=== PATIENT | female | born 1980 | race Caucasian/White ===

== ENCOUNTER 2016-11-30 12:53 | Emergency (ER) | payer OTHER ==
[~2016-11-30] VITALS: Ht 162.6 cm; Wt 56.8 kg
[~2016-11-30 12:53] MED LIST: BCP TD; MOTRIN 600600 MG/TAB PO; NO HOME MEDICATIONS; PERCOCET 325 MG1 TA2 PO; PRENATAL1 TA1 PO; ZOFRAN 4MG T4 MG/TAB PO
[2016-11-30 13:14] VITALS: BP 107/78; PULSE 85; TEMP 98.1
[2016-11-30] MEDS ORDERED: MULTI VITAMINS1 TAB PO (14:07)
[2016-11-30] MEDS ORDERED: NORCO 325 MG-51 TAB PO (15:20)
== END 2016-11-30 15:46 | disposition home or self-care (01) ==
LOC: COL.ER 12:53
DX: S62.316A Displaced fracture of base of fifth metacarpal bone, right hand, initial encounter for closed fracture (principal); W22.8XXA Striking against or struck by other objects, initial encounter

== ENCOUNTER 2017-07-20 19:51 | Emergency (ER) | payer OTHER ==
[~2017-07-20] VITALS: Ht 162.6 cm; Wt 54.5 kg
[~2017-07-20 19:51] MED LIST changes: +MULTI VITAMINS1 TAB PO; +NORCO 325 MG-51 TAB PO
[2017-07-20 19:53] VITALS: TEMP 97.9
[2017-07-20 20:41] LABS: PH 6 (5-8); SQUAMOUS EPITHELIAL 20-50 /hpf; URINE APPEARANCE Cloudy; URINE BACTERIA None Seen /hpf; URINE BILIRUBIN Negative (NEGATIVE); URINE BLOOD Negative (NEGATIVE); URINE COLOR Yellow; URINE GLUCOSE Negative (NEGATIVE); URINE KETONE Negative (NEGATIVE); URINE UROBILINOGEN Negative (NEGATIVE)
[2017-07-20 20:46] LABS: AMPHETAMINE URINE POSITIVE; BARBITURATES URINE NEGATIVE; BENZODIAZEPINES URINE NEGATIVE; BUPRENORPHINE URINE NEGATIVE; METHADONE URINE NEGATIVE; OPIATES URINE NEGATIVE; OXYCODONE URINE NEGATIVE; PHENCYCLIDINE URINE NEGATIVE; PROPOXYPHENE URINE NEGATIVE; THC CANNABINOIDS URINE POSITIVE
[2017-07-20 20:50] LABS: BASO % 0.5 % (0.0-2.0); EOS # 0.1 (0.0-0.7); EOS % 1.5 % (0-4.0); GRAN # 4.5 (1.4-6.5); GRAN % 69.3 % (42.2-75.2); HEMOGLOBIN 13.3 g/dl (12.5-16.0); LYMPH # 1.2 (1.2-3.4); LYMPH % 18.9 % (20.0-51.0); MEAN CELL VOLUME 77 fl (80.0-100.0); MEAN CORPUSCULAR HEMOGLOBIN 25 pg (27.0-31.0); MEAN CORPUSCULAR HGB CONC 32 g/dl (33.0-37.0); MEAN PLATELET VOLUME 9.3 fl (7.4-10.4); MONO # 0.6 (0.1-0.6); MONO % 9.6 % (1.7-9.3); PLATELET COUNT 375 K/mm3 (130-400); RED BLOOD COUNT 5.31 M/mm3 (4.10-5.30); REDCELL DISTRIBUTION WIDTH-CV 13.7 % (11.5-14.5); WHITE BLOOD COUNT 6.6 K/mm3 (4.8-10.8)
[2017-07-20 20:56] LABS: ADJUSTED CALCIUM 8.9 mg/dL (8.4-10.2); ALANINE AMINOTRANSFERASE 23 U/L (9-52); ALBUMIN 4.8 gm/dL (3.5-5.0); ALKALINE PHOSPHATASE 64 U/L (50-136); ANION GAP 13 mmol/L (7-16); BILIRUBIN,TOTAL 0.6 mg/dL (0.0-1.0); BLOOD UREA NITROGEN 9 mg/dL (7-17); CALCIUM 9.5 mg/dL (8.4-10.2); CARBON DIOXIDE 24 mmol/L (22-30); CHLORIDE 105 mmol/L (98-107); CREATININE, serum 0.72 mg/dL (0.52-1.25); GLUCOSE 79 mg/dL (74-106); POTASSIUM 3.3 mmol/L (3.4-5.0); SODIUM 141 mmol/L (137-145); TOTAL PROTEIN 8.4 gm/dL (6.4-8.2)
[2017-07-20 20:58] LABS: ACETAMINOPHEN < 10 ug/mL (10-30); SALICYLATE < 1.0 mg/dL
[2017-07-20] MEDS ORDERED: CIPRO 500MG TA500 MG PO (23:06)
[2017-07-21 01:50] VITALS: BP 111/73; PULSE 68
== END 2017-07-21 01:50 | disposition home or self-care (01) ==
LOC: COL.ER 19:51
PROVIDERS: Emergency Medicine
DX: F32.9 Major depressive disorder, single episode, unspecified (principal); F12.10 Cannabis abuse, uncomplicated; F15.10 Other stimulant abuse, uncomplicated; N39.0 Urinary tract infection, site not specified; F17.210 Nicotine dependence, cigarettes, uncomplicated; Z32.02 Encounter for pregnancy test, result negative